=== PATIENT | male | born 1995 | race Two or more races ===

== ENCOUNTER 2022-12-25 12:13 | Emergency (ER) | payer MEDICAID ==
[~2022-12-25] VITALS: Ht 170.2 cm; Wt 70.3 kg
[2022-12-25 12:29] VITALS: BP 103/60; TEMP 98.4
--- NOTE | 2022-12-25 12:35 | NUR ---
RIGHT SHOULDER PAIN,S/P TRIP/FALL THIS MORNING
[2022-12-25 12:40] VITALS: O2SAT 97
--- NOTE | 2022-12-25 12:45 | NUR ---
DR HERNÁNDEZ AT BED SIDE
--- NOTE | 2022-12-25 12:50 | NUR ---
PT TO XRAY VIA WHEELCHAIR
--- NOTE | 2022-12-25 14:10 | NUR ---
Patient discharged to home in stable condition. Written and verbal after care instructions given. Patient verbalizes understanding of instruction.
== END 2022-12-25 14:11 | disposition home or self-care (01) ==
LOC: ER 12:23
DX: M25.511 Pain in right shoulder (principal); Z60.2 Problems related to living alone
CPT/HCPCS: 73000-TC; 73030-TC